=== PATIENT | female | born 1995 | race Hispanic/Latino ===

== ENCOUNTER 2021-08-09 06:58 | Emergency (ER) | payer BC ==
[2021-08-09] MEDS ORDERED: Ondansetron PF 4 MG/2 ML Vial ONE (07:19)
[2021-08-09 07:37] LABS: #Eosinphils 0.1 thou/uL (0.0-0.7); #Lymphocytes 1.1 thou/uL (1.20-3.40); #Monocytes 0.3 thou/uL (0.11-0.59); %Basophils 0.2 % (0.0-1.0); %Eosinophils 0.8 % (0.0-10.0); %Monocytes 4.3 % (0.0-10.0); %Neutrophils 79.7 % (42.0-75.0); Mean Corpuscular HGB CONC 33.2 g/dL (32.0-36.0); Mean Corpuscular Hemoglobin 29.9 pg (27.0-31.0); Platelet Count 228 thou/uL (130-400); RBC Distribution Width 12.1 % (11.5-14.5); Red Blood Cell (RBC) Count 5.03 mill/uL (4.20-5.40); White Blood Cell (WBC) Count 7.5 thou/uL (4.8-10.8)
[2021-08-09 07:44] LABS: BHCG - Serum Negative (NEGATIVE); Pregs Control Background? CLEAR/WHITE (CLR/WHITE); Pregs Control Bar Appear? YES (CONTROL BAR)
[2021-08-09 07:46] LABS: Bacteria/HPF 4+ HPF (None Seen); Bilirubin Negative (Negative); Blood, Urine 3+ (Negative); Glucose, Urine (Dipstick) Normal (Negative); Ketone, Urine Negative (Negative); Leukocyte 25 Leu/uL (Negative); Nitrite Negative (Negative); Protein, Urine (Dipstick) 20 mg/dL (Neg-Trace); RBC/HPF Greater than 50 HPF (0-3); Squamous Epithelial 0-3 HPF (0-3); Urobilinogen Normal mg/dL (Less than 2); WBC/HPF 0-3 HPF (0-3); pH, Urine 6.5 (5.0-9.0)
[2021-08-09 07:47] LABS: Clarity Turbid (Clear)
[2021-08-09 07:57] LABS: ALT (SGPT) 25 U/L (8-55); AST (SGOT) 19 U/L (5-34); Albumin 4.6 g/dL (3.5-5.0); Alkaline Phosphatase 64 U/L (40-110); Anion Gap 15 mmol/L (10-20); BUN (Urea Nitrogen) 7 mg/dL (7.0-18.7); Bilirubin, Total 0.3 mg/dL (0.2-1.2); Calc. Creatinine Clearance 0 mL/min (70-130); Calcium 9.4 mg/dL (7.8-10.44); Carbon Dioxide 21 mmol/L (22-29); Chloride 106 mmol/L (98-107); Globulin 2.9 g/dL (2.4-3.5); Glucose 111 mg/dL (70-105); Lipase 19 U/L (8-78); Potassium 3.9 mmol/L (3.5-5.1); Protein, Total 7.5 g/dL (6.0-8.3); Sodium 138 mmol/L (136-145)
== END 2021-08-09 09:15 | disposition home or self-care (01) ==
LOC: ERS 06:58
DX: K80.20 Calculus of gallbladder without cholecystitis without obstruction (principal)
CPT/HCPCS: 36415; 76705; 80053; 81003; 81015; 83690; 84484; 84703; 85025; 93005; 96374; J2405

== ENCOUNTER 2022-04-05 07:56 | Day surgery (SDC) | payer OTHER ==
[2022-04-04 11:00] VITALS: BMI 28.5
[2022-04-05] MEDS ORDERED: Acetaminophen 500 MG TAB ONE (08:34)
[2022-04-05] MEDS ORDERED: Bupivacaine/Epinephrine 0.25% 30 ML VIAL ONE (09:26)
[2022-04-05] MEDS ORDERED: Ioversol 68 % 50 ML VIAL ONE (09:26)
[2022-04-05] MEDS ORDERED: Midazolam HCl 2 mg/2 ml Vial ONE (09:30)
[2022-04-05] MEDS ORDERED: fentaNYL PF 100 MCG/2 ML SYRINGE ONE (09:34)
[2022-04-05] MEDS ORDERED: CEFAZOLIN 2 GM VIAL ONE (09:34)
[2022-04-05] MEDS ORDERED: Sodium Chloride 0.9% 100 ML ONE (09:34)
[2022-04-05] MEDS ORDERED: Ketorolac Tromethamine 30 MG/ML VIAL ONE (09:47)
[2022-04-05] MEDS ORDERED: PROPOFOL 200 MG/20 ML VIAL ONE (09:47)
[2022-04-05] MEDS ORDERED: Rocuronium Bromide 10 MG/ML (10ML VIAL) ONE (09:47)
[2022-04-05] MEDS ORDERED: NEOSTIGMINE 3 MG/3 ML SYR 3 MG/3 ML SYRINGE ONE (09:47)
[2022-04-05] MEDS ORDERED: Ondansetron PF 4 MG/2 ML Vial ONE (09:47)
[2022-04-05] MEDS ORDERED: ePHEDrine 50 MG/ML VIAL ONE (09:47)
[2022-04-05] MEDS ORDERED: Dexamethasone 20 MG/5 ML VIAL ONE (09:47)
[2022-04-05] MEDS ORDERED: HYDROcodone/Acetaminophen 5/325 mg Tablet ONE (11:59)
== END 2022-04-05 12:24 | disposition home or self-care (01) ==
LOC: SDC 07:56
PROVIDERS: ATTEND Surgery
DX: K80.10 Calculus of gallbladder with chronic cholecystitis without obstruction (principal)
CPT/HCPCS: 47532; 88304; C1713; J1100; J1885; J2250; J2405; J2704; J3490; J7643; Q9967